=== PATIENT | female | born 1955 | race Caucasian/White ===

== ENCOUNTER 2017-03-06 10:17 | Outpatient (CLI) | payer MEDICARE ==
[2017-03-06 11:50] LABS: ALT (SGPT) 54 U/L (8-55); AST (SGOT) 78 U/L (5-34); Albumin 3.9 g/dL (3.4-4.8); Alkaline Phosphatase 156 U/L (40-150); Anion Gap 15 mmol/L (10-20); BUN (Urea Nitrogen) 13 mg/dL (9.8-20.1); Bilirubin, Total 1.3 mg/dL (0.2-1.2); Calc. Creatinine Clearance 0 mL/min (70-130); Carbon Dioxide 22 mmol/L (23-31); Cardiac Risk 3.8 (Less than 4.5); Chloride 107 mmol/L (98-107); Cholesterol 140 mg/dl (< 200 Desired); Estimated GFR-MDRD 81; Globulin 2.9 g/dL (2.4-3.5); Glucose 103 mg/dL (80-115); HDL Cholesterol 37 mg/dL (>60 Neg Risk); LDL Cholesterol, Calculated 86 mg/dL; Potassium 3.3 mmol/L (3.5-5.1); Protein, Total 6.8 g/dL (6.0-8.3); Sodium 141 mmol/L (136-145); Triglycerides 84 mg/dL (Less than 150)
[2017-03-06 12:13] LABS: #Basophils 0.1 thou/uL (0.0-0.2); #Eosinphils 0.1 thou/uL (0.0-0.7); #Lymphocytes 1.7 thou/uL (1.20-3.40); #Monocytes 0.5 thou/uL (0.11-0.59); %Basophils 1.1 % (0.0-1.0); %Eosinophils 2.3 % (0.0-10.0); %Lymphocytes 31.5 % (21.0-51.0); %Monocytes 8.6 % (0.0-10.0); %Neutrophils 56.4 % (42.0-75.0); Hemoglobin 15.4 g/dL (12.0-16.0); Mean Corpuscular HGB CONC 35.6 g/dL (32.0-36.0); Mean Corpuscular Hemoglobin 33.3 pg (27.0-31.0); Mean Corpuscular Volume 93.4 fl (81.0-99.0); Mean Platelet Volume 7.1 fL (7.4-10.4); PLT Morphology Comment Appears Decreased; Platelet Count 91 thou/uL (130-400); RBC Morphology Normal; Red Blood Cell (RBC) Count 4.64 mill/uL (4.20-5.40); White Blood Cell (WBC) Count 5.2 thou/uL (4.8-10.8)
== END 2017-03-06 10:18 ==
LOC: HPCALD 10:17
PROVIDERS: ATTEND Family Medicine
DX: E78.2 Mixed hyperlipidemia (principal); I10 Essential (primary) hypertension
CPT/HCPCS: 36415; 80053; 80061; 84443; 85025

== ENCOUNTER 2020-07-26 17:22 | Emergency (ER) | payer MEDICARE ==
[2020-07-26 18:26] LABS: #Basophils 0.1 thou/uL (0.0-0.2); #Eosinphils 0.1 thou/uL (0.0-0.7); #Lymphocytes 1.3 thou/uL (1.20-3.40); #Monocytes 0.9 thou/uL (0.11-0.59); #Neutrophils 8.9 thou/uL (1.40-6.50); %Basophils 0.9 % (0.0-1.0); %Eosinophils 0.6 % (0.0-10.0); %Lymphocytes 11.4 % (21.0-51.0); %Monocytes 7.8 % (0.0-10.0); %Neutrophils 79.2 % (42.0-75.0); Hemoglobin 15.5 g/dL (12.0-16.0); Mean Corpuscular Hemoglobin 31.1 pg (27.0-31.0); Mean Corpuscular Volume 97.2 fL (78.0-98.0); Mean Platelet Volume 8.5 fL (7.4-10.4); Platelet Count 110 thou/uL (130-400); Platelet Morphology Comment Appears Adequate; RBC Distribution Width 12.9 % (11.5-14.5); Red Blood Cell (RBC) Count 4.97 mill/uL (4.20-5.40); White Blood Cell (WBC) Count 11.2 thou/uL (4.8-10.8)
[2020-07-26 18:35] LABS: ALT (SGPT) 32 U/L (8-55); AST (SGOT) 64 U/L (5-34); Albumin 3.3 g/dL (3.4-4.8); Alkaline Phosphatase 110 U/L (40-110); Anion Gap 20 mmol/L (10-20); BUN (Urea Nitrogen) 17 mg/dL (9.8-20.1); Bilirubin, Total 4.3 mg/dL (0.2-1.2); Calc. Creatinine Clearance 0 mL/min (70-130); Carbon Dioxide 18 mmol/L (23-31); Chloride 99 mmol/L (98-107); Estimated GFR-MDRD 40; Globulin 3.6 g/dL (2.4-3.5); Glucose 120 mg/dL (80-115); Potassium 3.3 mmol/L (3.5-5.1); Protein, Total 6.9 g/dL (6.0-8.3); Sodium 134 mmol/L (136-145)
[2020-07-26 18:36] LABS: MDiff Complete? YES; Manual Diff?? NO
[2020-07-26 19:02] LABS: CKMB 6.7 ng/mL (0-6.6)
[2020-07-26] MEDS ORDERED: Furosemide 40 MG/4 ML VIAL ONE (19:15)
--- NOTE | 2020-07-27 07:10 | CT ---
CT ABDOMEN AND PELVIS WITHOUT CONTRAST: Date: 07/26/[address] studies were available for comparison. An abdominal ultrasound done 6 days ago showed cirrhosis, ascites, and splenomegaly. The lung bases are clear. The major finding in the abdomen is massive ascites, and I would argue even more than was seen on the prior ultrasound. The liver is small and irregular, consistent with cirrho sis. The spleen is, perhaps, a little increased in volume, but its overall measurements are not exces sive, being a little overt 12.0 cm in length. No gross pancreatic masses were seen, though the study is limited in being able to show it well. The kidneys showed no hydronephrosis. The aorta is not dila kamla. No adrenal masses were appreciated. There are some dilated loops of small bowel present, measuring up to 3.5 cm in width, along with some air fluid levels within them. The colon is not distended and there is some fecal material in the col on. No free air was appreciated. CT of the pelvis was remarkable mainly for the ascites. No pelvic masses were appreciated. IMPRESSION: 1. Massive ascites, presumably secondary to cirrhosis of the liver. 2. Mildly dilated loops of small bowel (up to 3.5 cm in width). I cannot exclude a small bowel obstr uction, but serial follow-up studies may be needed to assess this. Findings discussed with Dr. Joseph at 1840 hours on 07/26/2020. CODE CR. POS: HOME
--- NOTE | 2020-07-27 07:11 | RAD ---
CHEST 2 VIEWS: Date: 07/26/2020 No prior films are available for comparison. The heart is normal in size for age and body habitus. There is slight prominence of the vasculature, but not enough to call it congestive failure. There are no effusions. No focal pulmonary infiltrates are seen. IMPRESSION: No definite acute findings. POS: HOME
== END 2020-07-26 21:28 | disposition short-term general hospital (02) ==
LOC: BURERS 17:22
DX: R18.8 Other ascites (principal); I10 Essential (primary) hypertension; E78.00 Pure hypercholesterolemia, unspecified; K21.9 Gastro-esophageal reflux disease without esophagitis; Z79.899 Other long term (current) drug therapy
CPT/HCPCS: 36415; 71046; 74176; 80053; 82553; 83880; 84484; 85025; 93005; 96374; J1940